=== PATIENT | male | born 1940 | race African-American/Black ===

== ENCOUNTER 2020-12-08 15:19 | Emergency (ER) | payer OTHER ==
[~2020-12-08] VITALS: Ht 177.8 cm; Wt 78.0 kg
[~2020-12-08 15:19] MED LIST: PRED5TAB
[2020-12-08] MEDS ORDERED: ALBU18HF2 IH (17:28)
[2020-12-08] MEDS ORDERED: ACET-2708 PO (17:28)
[2020-12-08] MEDS ORDERED: AZIT250T12 MT (17:28)
[2020-12-08 18:29] VITALS: BP 134/82
== END 2020-12-08 18:30 | disposition home or self-care (01) ==
LOC: ER 15:19
DX: U07.1 COVID-19 (principal); J20.9 Acute bronchitis, unspecified; G70.00 Myasthenia gravis without (acute) exacerbation
CPT/HCPCS: 71045; 99284; C9803; U0003; U0005

== ENCOUNTER 2021-04-01 12:19 | Emergency (ER) | payer OTHER ==
[~2021-04-01] VITALS: Ht 172.7 cm; Wt 210.0 kg
[~2021-04-01 12:19] MED LIST changes: +ACET-2708 PO; +ALBU18HF2 IH; +AZIT250T12 MT
[2021-04-01 15:17] VITALS: BP 142/62
[2021-04-01] MEDS ORDERED: AZIT250T12 MT (15:35)
[2021-04-01] MEDS ORDERED: PRED5TAB PO (15:35)
== END 2021-04-01 16:13 | disposition home or self-care (01) ==
LOC: ER 12:19
DX: R05.9 Cough, unspecified (principal)
CPT/HCPCS: 99283

== ENCOUNTER 2021-04-03 23:01 | Emergency (ER) | payer OTHER ==
[~2021-04-03] VITALS: Ht 188 cm; Wt 70.0 kg
[~2021-04-03 23:01] MED LIST changes: -PRED5TAB; +PRED5TAB PO
[2021-04-03 23:09] VITALS: BP 150/100
[2021-04-04] MEDS ORDERED: ALBU18HF2 INH (02:08)
== END 2021-04-04 02:27 | disposition home or self-care (01) ==
LOC: ER 23:01
DX: R06.09 Other forms of dyspnea (principal); F41.9 Anxiety disorder, unspecified; J44.9 Chronic obstructive pulmonary disease, unspecified; G70.00 Myasthenia gravis without (acute) exacerbation; Z86.16 Personal history of COVID-19
CPT/HCPCS: 71045; 93005; 99283